=== PATIENT | male | born 1990 | race Caucasian/White ===

== ENCOUNTER 2016-09-20 16:04 | Emergency (ER) | payer SELFPAY ==
[~2016-09-20] VITALS: Wt 79.5 kg
[2016-09-20] MEDS ORDERED: LIDOCAINE 1%/EPI (MDV) 20 ML INJ INJ STA (18:02)
[2016-09-20] MEDS ORDERED: AMOX1TAB10 PO (18:29)
[2016-09-20] MEDS ORDERED: DIPHTH/TET/ACEL PERTUSS (ADULT) 0.5 ML VIAL IM* ONE (18:30)
--- NOTE | 2016-09-20 18:33 | ERD ---
ER Documentation Chief Complaint Date/Time DATE: 09/20/16 TIME: 18:22 Chief Complaint dogbite to right axilla area. and right arm. bleeding controlled. HPI 25 year old male comes in for a dog bite to the right side of his chest, as well as the forearm prior to arrival this afternoon. 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 He does not recall his last tetanus shot. ROS All systems reviewed and are negative except as per history of present illness. Medications Home Meds Active Scripts Amoxicillin/Potassium Clav (Amox-Clav 875-125 mg Tablet) 875-125 mg Tab, 1 TAB PO BID for 7 Days, #14 TAB Prov:JUAN LUIS MCCORMICK PA-C 09/20/16 Allergies Allergies: Coded Allergies: No Known Allergy (Unverified , 09/20/16) PMhx/Soc Medical and Surgical Hx: pt denies Medical Hx, pt denies Surgical Hx Hx Alcohol Use: No Hx Substance Use: No Hx Tobacco Use: No Physical Exam Vitals Vital Signs Date Time Temp Pulse Resp B/P Pulse Ox O2 Delivery O2 Flow Rate FiO2 09/20/16 16:06 98.4 105 20 137/66 98 Physical Exam = General: Well-developed, well-nourished. The patient appears in no acute distress. HEENT: Head is normocephalic, atraumatic. No scleral icterus. Neck is supple Lungs: Clear to auscultation. Normal air movement. Chest: 2 lacerations in the right lateral chest, one of them is 3 cm, additional is 3 cm, it is through the subcutaneous tissue only. Heart: Regular rate and rhythm. S1 and S2 are normal. No murmurs, gallops, or rubs. Abdomen: Soft, nontender, nondistended. Bowel sounds are normoactive. Extremities: No clubbing or cyanosis. Normal pulses. Moving extremities x 4. No weakness. Neurologic: Alert and oriented 3. No focal deficits. Skin: 2 puncture wounds in the right forearm approximately 1 cm each. Results 24 hrs Current Medications Medications (Trade) Dose Ordered Sig/Josse Route PRN Reason Start Time Stop Time Status Last Admin Dose Admin Diphtheria/ Tetanus/Acell Pertussis (Adacel) 0.5 ml ONCE ONCE IM* 09/20/16 18:30 09/20/16 18:31 DC 09/20/16 18:41 Lidocaine/ Epinephrine (Xylocaine 1%/ Epi (Mdv) 20 ml) 20 ml ONCE STAT INJ 09/20/16 18:02 09/20/16 18:03 DC Procedures/MDM ED course: Patient's tetanus is updated. Lacerations 4 were thoroughly irrigated with normal saline. #1 Laceration Repair by me: Patient was verbally consented Anesthesia: 1% lidocaine locally Location: Right chest Tendon/Joint/Nerves: No injury Foreign body: None detected after copious irrigation and exploration Technique: Simple Interrupted Sutures, using 4-0 x 3 Complexity: No subcutaneous sutures/mucosal repair/ edge excision Post Closure Length: 3 cm #2 Laceration Repair by me: Patient was verbally consented Anesthesia: 1% lidocaine locally Location: Right chest Tendon/Joint/Nerves: No injury Foreign body: None detected after copious irrigation and exploration Technique: Simple Interrupted Sutures, using 3-0 ethilon x 4 Complexity: No subcutaneous sutures/mucosal repair/ edge excision Post Closure Length: 3 cm 2 puncture wounds on the right forearm were also cleaned very thoroughly, a clean dressing was applied with bacitracin. MDM: 25-year-old male comes in with multiple dog bite wounds, 2 on the chest and 2 on the right forearm. 2 of them are closed very loosely on the chest, the puncture wounds were dressed and cleaned. I have instructed the patient that there is a chance that there may be an infection, therefore he was given Augmentin to go home with, and he has been given ER return precautions for any signs of infection. He is to do a wound check in the next 2 days. Departure Diagnosis: Primary Impression: Dog bite Condition: JUAN LUIS Garcia PA-C Sep 20, 2016 18:33
== END 2016-09-20 19:15 | disposition home or self-care (01) ==
LOC: FTE 16:04
DX: S21.151A Open bite of right front wall of thorax without penetration into thoracic cavity, initial encounter (principal); S21.111A Laceration without foreign body of right front wall of thorax without penetration into thoracic cavity, initial encounter; S51.831A Puncture wound without foreign body of right forearm, initial encounter; W54.0XXA Bitten by dog, initial encounter; Y92.9 Unspecified place or not applicable; Z23 Encounter for immunization
CPT/HCPCS: 90471; 90715